=== PATIENT | female | born 1930 | race Caucasian/White ===

== ENCOUNTER 2016-10-26 13:51 | Inpatient (IN) ==
[2016-10-26 15:29] LABS: ALLEN TEST YES; BE 4.1 mmoll (-3.0-3.0); BLOOD TYPE ARTERIAL; DRAW SITE R RADIAL; METHB 0.9 % (0.0-1.5); MODALITY ROOM AIR; O2(CT) 19.1 mL/dL (15.0-23.0); PCO2(98.6) 41 mmHg (35-45); PO2(98.6) 70 mmHg (60-100); SAMPLE BLOOD; SAO2 96.3 % (95.0-100.0); THB 14.5 g/dL (11.5-17.4); pH(98.6) 7.45 (7.35-7.45)
--- NOTE | 2016-10-26 15:33 | Diag Imaging Result Doc PS360 ---
EXAM: CHEST-PORTABLE HISTORY: AMS TECHNIQUE: AP portable at 1526 COMMENT: The inspiration is suboptimal. The opacities which were previously demonstrated in the right lower lobe on 02/24/2013 are no longer present. There is a pacemaker on the left. IMPRESSION: No evidence of acute disease. Electronically signed by Marty Marlow 10/26/2016 3:31 PM
[2016-10-26 15:55] LABS: MANUAL DIFF NEEDED? NO
[2016-10-26 16:00] LABS: BASO% 0.2 % (0.0-0.8); EOS# 0.05 X1000 (0.0-0.7); EOS% 0.5 % (0.0-10.0); HEMATOCRIT 42.7 % (37.0-47.0); IMM GRAN# 0.02 X1000 (0.0-0.04); IMM GRAN% 0.2 % (0.0-0.5); LYMPH# 1.16 X1000 (1.2-3.4); LYMPH% 12.5 % (20.5-51.1); MCH 31.1 PG (27-31); MCHC 32.8 g/dL (33-37); MCV 94.9 FL (81-99); MONO% 7.6 % (1.7-9.3); MPV 11.3 FL (7.4-10.4); PLT 227 X1000 (130-400)
--- NOTE | 2016-10-26 16:03 | Diag Imaging Result Doc PS360 ---
EXAM: CT HEAD W/O CONTRAST HISTORY: AMS TECHNIQUE: CT of the head without contrast COMMENT: There are calcifications in the left vertebral artery. There are calcifications in both internal carotid arteries. There is generalized cerebral atrophy. There are periventricular white matter lucencies bilaterally and small lacunae in the basal ganglia regions are present. No evidence of acute bony disease is present in the visualized paranasal sinuses are clear. There are no previous studies. IMPRESSION: Atrophy and chronic microvascular changes. No evidence of acute intracranial disease. Electronically signed by Marty Marlow 10/26/2016 4:00 PM
[2016-10-26 16:09] LABS: INR 1.02; PROTIME 10.7 Seconds (9.2-11.7); PTT 26.5 Seconds (22.0-36.0)
[2016-10-26 16:21] LABS: AGAP 12; ALBUMIN 3.8 g/dL (3.5-5.0); ALKALINE PHOSPHATASE 102 U/L (32-104); BUN 15 mg/dL (8-22); CALCIUM 9.3 mg/dL (8.8-10.2); CHLORIDE 99 mmol/L (98-107); CK PROFILE 147 U/L (24-173); COSMO 278; GOT 27 U/L (10-30); GPT 21 U/L (10-36); POTASSIUM 3.7 mmol/L (3.5-5.1); SODIUM 139 mmol/L (136-145); TCO2 28 mmol/L (25-35); TOTAL BILIRUBIN 0.62 mg/dL (0.20-1.00); TOTAL PROTEIN 7.4 g/dL (6.3-8.3)
[2016-10-26 16:33] LABS: URINE SOURCE CATH
[2016-10-26 16:36] LABS: BILIRUBIN URINE NEGATIVE (NEGATIVE); BLOOD URINE NEGATIVE (NEGATIVE); COLOR YELLOW; GLUCOSE URINE NEGATIVE (NEGATIVE); LEUKOCYTES URINE NEGATIVE (NEGATIVE); NITRITE URINE NEGATIVE (NEGATIVE); PH URINE 6.5; PROTEIN URINE TRACE mg/dL (NEGATIVE); TURBIDITY URINE CLEAR (CLEAR); UROBILINOGEN URINE NORMAL (NORMAL)
[2016-10-26 16:38] LABS: URINE MICRO REVIEW NEEDED? YES
[2016-10-26 16:44] LABS: UR EPITHELIAL CELLS <10 /HPF (<10); URINE BACTERIA NEGATIVE /HPF; URINE CULTURE NEEDED? YES; URINE RBC <10 /HPF (<10)
[2016-10-26 17:08] LABS: UR AMPHETAMINES QUAL NONE DETECTED (NONE DETECT); UR BARBITUATES QUAL NONE DETECTED (NONE DETECT); UR BENZODIAZEPIN QUAL NONE DETECTED (NONE DETECT); UR CANNABINOIDS QUAL NONE DETECTED (NONE DETECT); UR COCAINE QUAL NONE DETECTED (NONE DETECT); UR METHADONE QUAL NONE DETECTED (NONE DETECT); UR OPIATES QUAL NONE DETECTED (NONE DETECT); UR OXYCODONE QUAL NONE DETECTED (NONE DETECT); UR PCP QUAL NONE DETECTED (NONE DETECT)
--- NOTE | 2016-10-26 17:50 | PROVIDER DOCUMENTATION ---
HPI-General Adult - General Chief Complaint: Altered Mental Status Stated Complaint: ams Time Seen by Provider: 10/26/16 14:47 Source: family Allergies/Adverse Reactions: Patient Allergies Allergy/AdvReac Type Severity Reaction Status Date / Time carisoprodol [From Soma] Allergy Severe Unknown Verified 10/26/16 14:44 hydromorphone HCl * Allergy Severe VOMITING Verified 10/26/16 14:44 [From Dilaudid] ofloxacin [From Floxin] Allergy Severe HEADACHE Verified 10/26/16 14:44 piperacillin sodium * Allergy Intermediate ITCHING Verified 10/26/16 14:44 [From Zosyn] tazobactam sodium * Allergy Intermediate ITCHING Verified 10/26/16 14:44 [From Zosyn] Home Medications: Home Medication List Medication Instructions Recorded Confirmed Last Taken Type Clopidogrel [Plavix] 75 mg PO QHS 02/22/13 10/26/16 10/25/16 History 75 mg Pantoprazole Sodium [Protonix] 40 mg PO QHS 02/22/13 10/26/16 10/18/16 History 40 MG Aspirin [Nilson Chewable Aspirin] 81 mg PO QAM 10/26/16 10/26/16 10/18/16 History 81 MG Citalopram Hydrobromide 10 mg PO QAM 10/26/16 10/26/16 10/24/16 History [Citalopram HBr] 10 MG Isosorbide Mononitrate E.r. [Imdur] 60 mg PO TID 10/26/16 10/26/16 10/24/16 History 60 MG Memantine HCl [Namenda] 10 mg PO BID 10/26/16 10/26/16 10/24/16 History 10 MG Metoprolol Succinate E.r. [Toprol 100 mg PO DAILY #30 tablet 11/01/16 Unknown Rx Xl] - History of Present Illness -Gen Adult Nature of Presenting Problems: Pt is 86 y/o F brought to the ER by EMS by request of her children who state she has had a decline in her baseline mental status. Pt has a h/o dementia but family states she is able to live with moderate assistance from them. In the past 1-2 days she has had decreased ability to communicate and ambulate. She has not taken her daily medications x 2 days. On arrival, pt is pleasantly confused and in no distress. Review of Systems - Adult - REVIEW OF SYSTEMS - ADULT ROS:: ROS per family Constitutional: reports: no symptoms reported. denies: chills, fatique Eyes: reports: no symptoms reported. denies: blurred vision, double vision Ears, Nose, Mouth & Throat: reports: no symptoms reported. denies: ear pain, nose pain Cardiovascular: reports: no symptoms reported. denies: chest pain, orthopnea Respiratory: reports: no symptoms reported. denies: cough, shortness of breath Gastrointestinal: reports: no symptoms reported. denies: abdominal pain, nausea Genitourinary: reports: no symptoms reported. denies: dysuria, hematuria Musculoskeletal: reports: no symptoms reported. denies: joint pain, joint swelling Integumentary: reports: no symptoms reported. denies: itching, rash Neurological: reports: ataxia, other (decreased speech). denies: numbness, paresthesia Psychiatric: reports: no symptoms reported Endocrine: reports: no symptoms reported Hematologic/Lymphatic: reports: no symptoms reported Allergic/Immunologic: reports: no symptoms reported All Other Systems: Reviewed and Negative Past History - Adult - PAST MEDICAL HISTORY-ADULT Review of Records: reports: Old Records Reviewed, Nursing Assessment Review, Medications Reviewed, Social history reviewed & non-contributory. Major Childhood Illnesses: reports: denies history Cardiovascular: reports: CAD, CHF, HTN Respiratory: reports: denies history Gastrointestinal: reports: denies history Obstetrical/Gynecological: reports: denies history Genitourinary: reports: denies history Musculoskeletal: reports: denies history Neurological: reports: dementia Endocrine/Immune: reports: denies history Other Conditions: reports: denies history - IMMUNIZATION STATUS Childhood Immunizations: See Nurse Assessment Flu Vaccine: See Nurse Assessment - FAMILY HISTORY Family History: reviewed, not pertinent Physical Exam-General - PHYSICAL EXAM-ADULT Initial Vital Signs Reviewed: Yes - CONSTITUTIONAL General Appearance: no apparent distress, other (pleasantly confused) - EYES Eyes: PERRL/EOMI, pink conjunctivae - HEAD, EARS, NOSE, MOUTH & THROAT HENMT: normocephalic/atraumatic, moist mucous membranes, normal ENT inspection - NECK Neck: normal inspection - RESPIRATORY Respiratory: chest non-tender, lungs clear, normal breath sounds - CARDIOVASCULAR Cardiovascular: normal peripheral pulses, regular rate, rhythm - GASTROINTESTINAL (ABDOMEN) Abdominal Exam: normal bowel sounds, non tender, soft - LYMPHATIC Lymphatic: no adenopathy - MUSCULOSKELETAL Back Exam: normal inspection, no CVA tenderness, no vertebral tenderness Extremity: normal range of motion, normal inspection - SKIN Integumentary: normal color, normal turgor, warm/dry - NEUROLOGIC Neurologic: other (confused speech). negative: facial droop - PSYCHIATRIC Psych/Mental Status: disoriented x 3 Progress - PLAN OF CARE/RESULTS Progress/Plan/Lab Results: Vital Signs - 8 hr 10/26/16 14:00 Temperature 98 F Pulse Rate 68 Respiratory Rate 20 Blood Pressure 180/94 O2 Sat by Pulse Oximetry 95 Laboratory Results - last 24 hr 10/26/16 10/26/16 10/26/16 15:19 15:36 15:36 WBC 9.26 RBC 4.50 Hgb 14.0 Hct 42.7 MCV 94.9 MCH 31.1 H MCHC 32.8 L RDW Std Deviation 13.8 Plt Count 227 MPV 11.3 H Immature Gran % (Auto) 0.2 Neut % (Auto) 79.0 H Lymph % (Auto) 12.5 L Early % (Auto) 7.6 Eos % (Auto) 0.5 Baso % (Auto) 0.2 Immature Gran # (Auto) 0.02 Neut # (Auto) 7.31 H Lymph # (Auto) 1.16 L Early # (Auto) 0.70 H Eos # (Auto) 0.05 Baso # (Auto) 0.02 PT INR PTT (Actin FS) Specimen Type ARTERIAL Sample Site R RADIAL pH 7.45 pCO2 41 pO2 70 HCO3 28.0 H Base Excess 4.1 H Oxyhemoglobin 93.7 L ABG O2 Sat (Calculated) 19.1 ABG O2 Saturation 96.3 ABG Carboxyhemoglobin 1.80 ABG Methemoglobin 0.9 Wolf Test YES A-a O2 Difference 28.0 Total Hemoglobin 14.5 Lactate 0.90 Blood Gas Modality ROOM AIR FiO2 % 21.0 Sodium Potassium Chloride Carbon Dioxide Anion Gap BUN Creatinine Estimated GFR/1.73 m2 BUN/Creatinine Ratio Glucose Calculated Osmolality Calcium Total Bilirubin AST ALT Alkaline Phosphatase Creatine Kinase Troponin T Total Protein Albumin Globulin Albumin/Globulin Ratio Plasma Lactate Urine Source Urine Color Urine Turbidity Urine pH Ur Specific Dilley Urine Protein Ur Glucose (Stick) Ur Ketones (Stick) Urine Blood Urine Nitrite Urine Bilirubin Urobilinogen Dipstick Urine Leukocytes Urine WBC (Auto) Urine RBC (Auto) U Epithel Cells (Auto) Urine Bacteria (Auto) Urine Crystals Small Round Cells Urine Casts Urine Yeast-like Cells Urine Opiates Screen Ur Oxycodone Screen Ur Methadone, Qual Ur Barbiturates Screen Ur Phencyclidine Scrn Ur Amphetamines Screen U Benzodiazepines Scrn Urine Cocaine Screen U Cannabinoids Screen Plasma/Serum Ethyl Alc 10/26/16 10/26/16 10/26/16 15:36 15:36 15:36 WBC RBC Hgb Hct MCV MCH MCHC RDW Std Deviation Plt Count MPV Immature Gran % (Auto) Neut % (Auto) Lymph % (Auto) Early % (Auto) Eos % (Auto) Baso % (Auto) Immature Gran # (Auto) Neut # (Auto) Lymph # (Auto) Early # (Auto) Eos # (Auto) Baso # (Auto) PT 10.7 INR 1.02 PTT (Actin FS) 26.5 Specimen Type Sample Site pH pCO2 pO2 HCO3 Base Excess Oxyhemoglobin ABG O2 Sat (Calculated) ABG O2 Saturation ABG Carboxyhemoglobin ABG Methemoglobin Wolf Test A-a O2 Difference Total Hemoglobin Lactate Blood Gas Modality FiO2 % Sodium 139 Potassium 3.7 Chloride 99 Carbon Dioxide 28 Anion Gap 12 BUN 15 Creatinine 0.8 Estimated GFR/1.73 m2 > 60 BUN/Creatinine Ratio 19 Glucose 94 Calculated Osmolality 278 Calcium 9.3 Total Bilirubin 0.62 AST 27 ALT 21 Alkaline Phosphatase 102 Creatine Kinase 147 Troponin T Total Protein 7.4 Albumin 3.8 Globulin 3.6 Albumin/Globulin Ratio 1.1 Plasma Lactate 1.1 Urine Source Urine Color Urine Turbidity Urine pH Ur Specific Dilley Urine Protein Ur Glucose (Stick) Ur Ketones (Stick) Urine Blood Urine Nitrite Urine Bilirubin Urobilinogen Dipstick Urine Leukocytes Urine WBC (Auto) Urine RBC (Auto) U Epithel Cells (Auto) Urine Bacteria (Auto) Urine Crystals Small Round Cells Urine Casts Urine Yeast-like Cells Urine Opiates Screen Ur Oxycodone Screen Ur Methadone, Qual Ur Barbiturates Screen Ur Phencyclidine Scrn Ur Amphetamines Screen U Benzodiazepines Scrn Urine Cocaine Screen U Cannabinoids Screen Plasma/Serum Ethyl Alc 10/26/16 10/26/16 10/26/16 15:36 16:32 16:32 WBC RBC Hgb Hct MCV MCH MCHC RDW Std Deviation Plt Count MPV Immature Gran % (Auto) Neut % (Auto) Lymph % (Auto) Early % (Auto) Eos % (Auto) Baso % (Auto) Immature Gran # (Auto) Neut # (Auto) Lymph # (Auto) Early # (Auto) Eos # (Auto) Baso # (Auto) PT INR PTT (Actin FS) Specimen Type Sample Site pH pCO2 pO2 HCO3 Base Excess Oxyhemoglobin ABG O2 Sat (Calculated) ABG O2 Saturation ABG Carboxyhemoglobin ABG Methemoglobin Wolf Test A-a O2 Difference Total Hemoglobin Lactate Blood Gas Modality FiO2 % Sodium Potassium Chloride Carbon Dioxide Anion Gap BUN Creatinine Estimated GFR/1.73 m2 BUN/Creatinine Ratio Glucose Calculated Osmolality Calcium Total Bilirubin AST ALT Alkaline Phosphatase Creatine Kinase Troponin T < 0.010 Total Protein Albumin Globulin Albumin/Globulin Ratio Plasma Lactate Urine Source CATH Urine Color YELLOW Urine Turbidity CLEAR Urine pH 6.5 Ur Specific Dilley 1.020 Urine Protein TRACE A Ur Glucose (Stick) NEGATIVE Ur Ketones (Stick) TRACE A Urine Blood NEGATIVE Urine Nitrite NEGATIVE Urine Bilirubin NEGATIVE Urobilinogen Dipstick NORMAL Urine Leukocytes NEGATIVE Urine WBC (Auto) 10-20 A Urine RBC (Auto) <10 U Epithel Cells (Auto) <10 Urine Bacteria (Auto) NEGATIVE Urine Crystals Not Reportable Small Round Cells Not Reportable Urine Casts Not Reportable Urine Yeast-like Cells PRESENT Urine Opiates Screen NONE DETECTED Ur Oxycodone Screen NONE DETECTED Ur Methadone, Qual NONE DETECTED Ur Barbiturates Screen NONE DETECTED Ur Phencyclidine Scrn NONE DETECTED Ur Amphetamines Screen NONE DETECTED U Benzodiazepines Scrn NONE DETECTED Urine Cocaine Screen NONE DETECTED U Cannabinoids Screen NONE DETECTED Plasma/Serum Ethyl Alc Orders Category Date Time Status Cardiac Monitoring DIRECTED Care 10/26/16 15:09 Active Finger Stick Blood Sugar (ED) DIRECTED Care 10/26/16 15:09 Active Quintero Cath Insertion ORDERED Care 10/26/16 16:00 Active Oxygen Therapy- ED Nursing DIRECTED Care 10/26/16 15:09 Active Saline Loc NOW Care 10/26/16 15:09 Active CHEST-PORTABLE [RAD] Stat Exams 10/26/16 15:[address] HEAD W/O CONTRAST [CT] Stat Exams 10/26/16 15:10 Completed ABG [RESP] Routine Lab 10/26/16 15:19 Completed ALCOHOL BLOOD Stat Lab 10/26/16 15:36 Completed CBC WITH ELECTRONIC DIFF [HEME] Stat Lab 10/26/16 15:36 Completed CK PROFILE [SP CHEM] Stat Lab 10/26/16 15:36 Completed COMPREHENSIVE METABOLIC PANEL [CHEM] Stat Lab 10/26/16 15:36 Completed LACTATE, PLASMA [CHEM] Stat Lab 10/26/16 15:36 Completed PROTIME WITH INR [COAG] Stat Lab 10/26/16 15:36 Completed PTT [COAG] Stat Lab 10/26/16 15:36 Completed TROPONIN T Stat Lab 10/26/16 15:36 Completed URINALYSIS W/POSS RFLX CULT-1 [URINALYSIS] Stat Lab 10/26/16 16:32 Completed URINE CULTURE [RM] Routine Lab 10/26/16 17:08 Received URINE DRUG SCREEN Stat Lab 10/26/16 16:32 Completed URINE MANUAL MICROSCOPIC [URINALYSIS] Stat Lab 10/26/16 16:32 Completed Pulse Oximetry Stat Oth 10/26/16 15:09 Active EKG [EKG] Stat Ther 10/26/16 15:09 Ordered Result Diagrams: 10/29/16 09:07 10/29/16 09:07 - CONSULTS/PCP/HOSPITALIST Notification #1 *Consult/PCP/Hospitalist*: Dr. Velázquez (PCP) Time Discussed: 17:48 Reason/Comments: Will see pt in the ER and admit her to his service. Departure - Departure Date of Disposition Decision: 10/26/16 Time of Disposition Decision: 17:48 DIAGNOSIS: Altered mental status Qualifiers: Altered mental status type: unspecified Qualified Code(s): R41.82 - Altered mental status, unspecified Disposition: ADMITTED INPATIENT 09 Certified Medical Emergency: Emergent Condition: Stable - Critical Care Note This patient required my direct & personal management of CC.: No Attestation - Physician/ KEEGAN Attestation Patient care was provided by Advanced Practice Provider:: Yes Advanced Practice Provider:: Toni Jerry Advanced Practice Provider documentation review:: The Mid-level provider documentation, treatment plan and medical decision making was reviewed by the physician who agrees with all treatment and medical decision making by the [facility]. The physician spent face to face time with patient:: No Advanced Practice Provider documentation review:: Supervising physician onsite and consulted in the evaluation and care of this patient. The physician did not have a face to face encounter with the patient.
[2016-10-26] MEDS ORDERED: NS 1,000 ML IV ONE (17:51)
[2016-10-26] MEDS ORDERED: DOXYCYCLINE 100 MG in NS 250 ML IV ONE (19:30)
--- NOTE | 2016-10-26 19:41 | HISTORY AND PHYSICAL ---
CHIEF COMPLAINT: Acute mental status, decline and loss of functional performance. HISTORY OF PRESENT ILLNESS: This 86-year-old, white female has a known history of dementia but lives with the assistance of her children even though she is disoriented quite a bit. They report that on Saturday, she began to have an acute decline in her overall mental status and performance. Her words made no sense and she seemed completely disoriented. She was not able to take her medications. She could barely walk even with 2 people assisting her. The daughter states that her steps became shorten and shuffling and that over the next 48-72 hour period, she went from walking with minimal assistance without a walker to requiring 2 people to help her and a walker just to shuffle across the floor. They do not report any fever or chills. The patient was not able to make any complaints to them. They called the office this morning but then opted to take an ambulance to [facility] which arrived several hours after their phone call. She had a workup in the emergency room which showed a urinary tract infection but no evidence of acute sepsis. She was also hypertensive and was having runs of tachycardia. The patient's daughter noted that she has not taken any of her medicines in several days. The patient also had a negative CT scan of the brain and cardiac enzymes were negative. ABG was unremarkable. She is admitted for acute mental status change. ALLERGIES: She allergic to Soma, ofloxacin, penicillin and sulfa drugs. She does not do well with Dilaudid. FAMILY HISTORY: Significant for heart disease. SOCIAL HISTORY: The patient is a nonsmoker and lives in a nonsmoking household. She basically lives with her daughter. PAST MEDICAL/SURGICAL HISTORY: 1. Status post cervical fusion. 2. Lumbar laminectomy. 3. Tubal ligation. 4. Bilateral cataracts. 5. Left total knee. 6. Hysterectomy. 7. Right shoulder arthroplasty. 8. History of ischemic heart disease. 9. Hypertension. 10. Remote history of congestive heart failure. 11. Chronic anemia. 12. Chronic lower extremity edema. REVIEW OF SYSTEMS: The patient was unable to give a review of systems. Please see History of Present Illness for the family's commentary. They do not note that she has had an abnormal smell to her urine. She appears to have a normal urine concentration that she usually does. They state that if she sits up all day, her legs swell,. At time my examination in the recumbent position, they were not swollen. There has been no coughing, wheezing or shortness of breath. The patient did not complain of chest pain during her stay in the emergency room, but the daughter states she has complained of chest pain over the last several weeks. The patient's daughter is adamant that she was doing well up until Saturday and she first noted a decline when she gave her some Zyprexa for "anxiety." I do not have on my record that she was on any type of medication such as this on a regular basis. She may have been given that once or twice in the past for acute problems. PHYSICAL EXAMINATION: GENERAL: She is a well-developed, overweight white female, in no acute distress. She is a little bit restless and agitated. She is confused and not oriented, but that is not far from her baseline. She is unable to form complete sentences or even phrases that make any sense. She talks rather continuously and objects to being manipulated to measure blood pressure and such. She was difficult to examine. HEENT: Sclerae are anicteric. Slightly pale. Overall, her skin tone is pale. LUNGS: Clear to auscultation. CARDIOVASCULAR: At the time of my examination, showed a heart rate of 80 with no significant murmur or gallop. ABDOMEN: Benign although protuberant. EXTREMITIES: Show fine wrinkling in the pretibial flesh indicative of recent volume contraction which was also visible in the feet. She had good capillary refill in the upper and lower extremities. NEUROLOGIC: As stated before, the patient was alert but not oriented. Not conversive, not appropriate and really did not make any sense the entire time I was talking with her. She was unable to be tested for neurologic specificities. LABORATORY: White cell count is 9.2, hematocrit 42.7. ABG 7.45, 41, 708. Serum electrolytes were normal. Troponin T and CK were within the normal range. Urinalysis showed 10-20 white cells per high-power field. Her urine drug screen was negative. ASSESSMENT/PLAN: 1. The patient will be admitted for acute mental status change. I discussed with the family the fact that the patient's quality of life at 86 has sharply declined over the last few months anyway. I proposed that we treat her for the urinary tract infection, gently hydrate as necessary and administer as many of her medications through an IV route as possible and see if her mental status turns around. If it does not do so over the weekend, we will then and obtain MRI Saturday and consult Dr. Lanie Lema for his opinion on her mental status. 2. Do not resuscitate level 1. cc: Jean Velázquez MD MTDD
[2016-10-26] MEDS: NAMENDA PO SCH (21:00)
[2016-10-26] MEDS: PLAVIX PO SCH (22:20)
[2016-10-27] MEDS ORDERED: STERILE WATER INJ. INJ PRN (00:01)
[2016-10-27] MEDS ORDERED: LOPRESSOR IV SCH (00:01)
[2016-10-27] MEDS ORDERED: GEODON IM PRN (00:01)
[2016-10-27] MEDS: NITROGLYCERIN TOP SCH ×3 (01:10→15:58)
[2016-10-27] MEDS: PEPCID IV SCH ×2 (01:11→14:17)
[2016-10-27] MEDS: PROTONIX IV SCH (05:25)
[2016-10-27] MEDS: SODIUM CHLORIDE 0.9% INJ SCH (05:25)
[2016-10-27] MEDS: DOXYCYCLINE 100 MG in NS 250 ML IV SCH ×2 (08:00→21:37)
[2016-10-27] MEDS ORDERED: CARDIZEM IV ONE (08:18)
[2016-10-27] MEDS ORDERED: LANOXIN IV ONE (09:55)
[2016-10-27] MEDS: NAMENDA PO SCH ×2 (10:01→21:37)
[2016-10-27] MEDS: ASPIRIN PO SCH (10:01)
[2016-10-27] MEDS: TOPROL XL PO SCH (10:01)
[2016-10-27] MEDS: LANOXIN IV SCH ×4 (14:18→21:37)
--- NOTE | 2016-10-27 17:45 | CONSULTATION ---
DATE OF CONSULTATION: 10/27/2016 INDICATION: Altered mental status. Atrial arrhythmias. Possible chest pain. HISTORY OF PRESENT ILLNESS: Ms. Abdullahi is a pleasant 86-year-old female with a significant level of dementia who is taken care of by her children at home. Apparently, she has been on some antibiotics for a urinary tract infection and has not been maintaining oral intake and as such had been somewhat difficult to get her to take her antibiotics. Family reports she has been somewhat weaker lately. Thus, they brought her into the ER for further evaluations. Apparently, over the course of the hospitalization, she has had some complaints of chest pain although the patient is a very poor historian and is not able to provide much of this. Apparently, she has been administered some doses of nitroglycerin. In addition, there has been report of some atrial arrhythmias occurring; however, I have no documentation of that in the chart presently. I have contacted telemetry to get those sent down. PAST MEDICAL HISTORY: 1. Via chart review is significant for coronary disease. Previously taken care by Dr. Parada, most recently by Dr. Bettencourt. She had a cardiac cath in 2001 with an occluded PDA, noted to have collaterals and a patent LAD stent. She had a previous stent to the PDA in 1998, LAD stent in 1999. Most recent cath with 2013, left main, LAD and circumflex were patent. Right coronary was occluded after high-grade proximal lesion with good collateralization to the distal right. EF was around 45% on that study. 2. 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 3. Hypertension. 4. Hyperlipidemia, with intolerance to statins. 5. Bilateral carotid artery disease. 6. History of TIA. 7. Mild COPD. 8. Peptic ulcer disease. 9. Significant dementia. SOCIAL HISTORY: Nonsmoker. She lives with her daughter. FAMILY HISTORY: Significant for heart disease. REVIEW OF SYSTEMS: A 10 system review of systems is unable to be obtained secondary to the patient's significant level of dementia. PHYSICAL EXAMINATION: Vital signs: Afebrile. Heart rates are widely variable. She has got documentations anywhere from the 60s to the 90s along with 2 recordings of 168 and 170. I am still pending on that telemetry. Blood pressure is 153/87. General: She is in no acute distress. HEENT: Oropharynx is moist. Poor dentition. Eye examination shows pink conjunctivae. White sclerae. Neck: Examination shows no obvious thyromegaly or thyroid tenderness. Cardiovascular: She is in a regular rate and rhythm. She has no murmurs. She has no S3. She has no lower extremity edema. Chest: Clear bilaterally. She has no increased work of breathing. Abdomen: Soft, nontender, nondistended. She has no obvious organomegaly. Skin: Warm and dry throughout without any rashes. Neurological/psychiatrically: She is unable to cooperate with the examination. She is pleasantly confused. She is quite fidgety with her hands as well as continuously mumbling during much of the exam. PERTINENT DATA: Her EKG shows sinus rhythm at 69 beats per minute. No signs of significant arrhythmias. No signs of ischemic changes or evidence for old infarct. Chest x-ray shows no evidence of any acute disease. CT the head shows atrophy and chronic microvascular changes, but nothing appears to be acutely abnormal. White count is 9.2, hematocrit 42.7, platelet count 227,000, INR 1, sodium 139, potassium 3.7, BUN 15, creatinine 0.8. Cardiac enzymes are normal. Albumin is 3.8. Urinalysis was reviewed and had 10-20 white blood cells. ASSESSMENT: 1. Chest pain. 2. Dementia with apparent worsening weakness. 3. Possible atrial arrhythmias. PLAN: We are pending her telemetry to review these episodes. Presently, I would consider potentially adding in a calcium channel milly in the form of diltiazem long-acting if she does indeed have some atrial arrhythmias and this could possibly also add in somewhat of an antianginal benefit. In addition, we could also titrate up her metoprolol as another alternative as well. We will wait review of these arrhythmias prior to proceeding. cc: MD Jean Ventura MD
--- NOTE | 2016-10-27 19:17 | ECHO REPORT ---
ORDER DATE: 10/27/2016 INDICATION: Atrial arrhythmias. FINDINGS: 1. Right atrium is normal in size. There is linear artifact consistent with device leads noted in the right heart chambers. 2. Mild tricuspid regurgitation. RV systolic pressure of 43. 3. Normal RV size and systolic function. 4. Trace pulmonic insufficiency. 5. Normal left atrial size at 3.2 cm. 6. No mitral valve prolapse. Trace mitral regurgitation. 7. Normal LV size, end-diastolic dimension of 4.6. Normal wall thicknesses with a posterior and interventricular septal wall thickness of 0.9 cm each. Normal LV systolic function. Calculated EF of 64% with normal wall motion. 8. Aortic valve opens well. There is mild aortic insufficiency. No evidence of stenosis. 9. Aorta appears normal in visualized segments. 10. No pericardial effusion seen. cc: MD Yosvany Ventura MD Timothy P. Weirich, MD
[2016-10-27] MEDS: PLAVIX PO SCH (21:37)
[2016-10-28] MEDS: NITROGLYCERIN TOP SCH (00:58)
[2016-10-28] MEDS: PEPCID IV SCH ×3 (00:58→23:43)
[2016-10-28] MEDS: LANOXIN IV SCH (00:59)
[2016-10-28] MEDS: PROTONIX IV SCH (05:14)
[2016-10-28] MEDS: NAMENDA PO SCH ×2 (09:01→21:55)
[2016-10-28] MEDS: DOXYCYCLINE 100 MG in NS 250 ML IV SCH ×2 (09:01→21:55)
[2016-10-28] MEDS: ASPIRIN PO SCH (09:01)
[2016-10-28] MEDS: TOPROL XL PO SCH (09:02)
[2016-10-28] MEDS: CELEXA PO SCH (11:02)
[2016-10-28] MEDS: IMDUR PO SCH ×3 (11:02→17:54)
[2016-10-28] MEDS: SODIUM CHLORIDE 0.9% INJ SCH (13:06)
--- NOTE | 2016-10-28 14:07 | PROGRESS NOTE ---
DATE: 10/28/2016 SUBJECTIVE: Ms. Abdullahi continues to be quite confused. She is sleeping pleasantly on presentation, and with light physical stimuli she awakes, and has essentially unintelligible speech. PHYSICAL EXAMINATION: Vital Signs: She is afebrile. Heart rate is in the 70s to 90s. Blood pressure 147/69. General: She is in no acute distress. Cardiovascular: She sounds to be in a regular rate and rhythm. She has no murmurs. She has no S3. No lower extremity edema. Chest: Clear bilaterally. No increased work of breathing. Abdomen: Soft, nontender. PERTINENT DATA: Her echocardiogram yesterday showed a normal ejection fraction, with no significant valvular abnormalities. Her laboratory data was from the , with nothing new since. ASSESSMENT: Atrial arrhythmias, probable supraventricular tachycardia in nature. PLAN: She already had a dose escalation by Dr. Gleason. She was on Toprol 25 mg at bedtime, and this has been escalated up to 100 mg. I do not see any reoccurrence of these arrhythmias since. For now, I would continue on this dose of medication. I have no further recommendations at this point. Please contact us if we can be of further assistance. cc: MD Jean Ventura MD
[2016-10-28] MEDS: TYLENOL PO PRN (21:55)
[2016-10-28] MEDS: PLAVIX PO SCH (21:55)
[2016-10-29] MEDS: PROTONIX IV SCH (05:11)
--- NOTE | 2016-10-29 05:50 | EKG Report ---
Test Performed on : 10/28/2016 05:43:02 AM Test Reason : tachycardia Blood Pressure : / mmHG Vent. Rate : 085 BPM Atrial Rate : 085 BPM P-R Int : 150 ms QRS Dur : 084 ms QT Int : 350 ms P-R-T Axes : 068 -17 060 degrees QTc Int : 416 ms Normal sinus rhythm. Cannot rule out Inferior infarct , age undetermined Abnormal ECG When compared with ECG of 26-OCT-2016 18:00, (Unconfirmed) ST no longer depressed in Anterior leads Confirmed by Cruzito Camara MD ([id number]) on 10/31/2016 5:58:35 PM
--- NOTE | 2016-10-29 06:43 | EKG Report ---
Test Performed on : 10/26/2016 3:08:25 PM Test Reason : AMS Blood Pressure : / mmHG Vent. Rate : 069 BPM Atrial Rate : 069 BPM P-R Int : 114 ms QRS Dur : 094 ms QT Int : 368 ms P-R-T Axes : 000 -23 008 degrees QTc Int : 394 ms Normal sinus rhythm. Low voltage QRS Inferior infarct , age undetermined Abnormal ECG When compared with ECG of 23-FEB-2013 06:47, Nonspecific T wave abnormality now evident in Anterolateral leads Unconfirmed Result
--- NOTE | 2016-10-29 06:49 | EKG Report ---
Test Performed on : 10/26/2016 6:00:55 PM Test Reason : tachy Blood Pressure : / mmHG Vent. Rate : 078 BPM Atrial Rate : 078 BPM P-R Int : 170 ms QRS Dur : 066 ms QT Int : 338 ms P-R-T Axes : 100 -12 044 degrees QTc Int : 385 ms Normal sinus rhythm. Nonspecific ST and T wave abnormality Abnormal ECG When compared with ECG of 26-OCT-2016 15:08, (Unconfirmed) QRS duration has decreased Criteria for Inferior infarct are no longer present ST more depressed in Anterior leads Nonspecific T wave abnormality no longer evident in Lateral leads Unconfirmed Result
[2016-10-29] MEDS: DOXYCYCLINE 100 MG in NS 250 ML IV SCH ×2 (09:24→20:14)
[2016-10-29] MEDS: CELEXA PO SCH (09:25)
[2016-10-29] MEDS: ASPIRIN PO SCH (09:26)
[2016-10-29] MEDS: IMDUR PO SCH ×3 (09:27→18:48)
[2016-10-29 09:28] LABS: MANUAL DIFF NEEDED? NO
[2016-10-29] MEDS: TOPROL XL PO SCH (09:28)
[2016-10-29] MEDS: NAMENDA PO SCH ×2 (09:28→20:14)
[2016-10-29 09:29] LABS: BASO% 0.2 % (0.0-0.8); EOS# 0.11 X1000 (0.0-0.7); HEMATOCRIT 39.4 % (37.0-47.0); HEMOGLOBIN 12.9 g/dL (12.0-16.0); IMM GRAN# 0.02 X1000 (0.0-0.04); IMM GRAN% 0.2 % (0.0-0.5); LYMPH# 1.19 X1000 (1.2-3.4); LYMPH% 11.3 % (20.5-51.1); MCH 31.3 PG (27-31); MCHC 32.7 g/dL (33-37); MCV 95.6 FL (81-99); MONO# 1.14 X1000 (0.11-0.59); MONO% 10.8 % (1.7-9.3); MPV 11.1 FL (7.4-10.4); NEUT% 76.5 % (42.2-75.2); PLT 211 X1000 (130-400); RBC 4.12 XMIL (4.2-5.4)
[2016-10-29 10:07] LABS: ALBUMIN 3.1 g/dL (3.5-5.0); CALCIUM 9.6 mg/dL (8.8-10.2); POTASSIUM 3.9 mmol/L (3.5-5.1); TOTAL BILIRUBIN 0.73 mg/dL (0.20-1.00); TOTAL PROTEIN 5.9 g/dL (6.3-8.3)
[2016-10-29] MEDS: PEPCID IV SCH (11:45)
[2016-10-29] MEDS: SODIUM CHLORIDE 0.9% INJ SCH (11:45)
--- NOTE | 2016-10-29 12:49 | PROGRESS NOTE ---
DATE: 10/29/2016 SUBJECTIVE: The patient's daughter states that she has gotten worse over the weekend. Despite reasonable fluid management and changing of certain cardiovascular medications, she has continued to have a downhill course in her level of interaction. She is able to take her medications with pudding now but since having her Quintero catheter removed she has not urinated overnight. Bladder scan showed a volume of 118 mL. Food intake is marginal. She has been sleeping a lot. OBJECTIVE: Vital Signs: 97.7, 61, 18, 150/70, 99% saturated on room air. General: The patient is asleep but arouses and complains about being aroused, although her words are unintelligible. Lungs: Clear. Cardiovascular: Regular, bordering on bradycardic at the time of my examination. Extremities: Show no peripheral edema. The patient does not have any abdominal tenderness or pain as evidenced by the deep palpation. ASSESSMENT AND PLAN: 1. As per my initial H P, I was hoping that reasonable metabolic management would result in recovery from her acute decline of mental status. This is not been the case. I was going to order an MRI this morning but she has a pacemaker and they cannot do that particular procedure. I am going to consult Dr. Lema to get his input on her acute mental status and see if he thinks a repeat CT scan would be worth doing. 2. I plan to recheck all of the patient's labs and follow vital signs. She has not seemed to have had a recurrence of her tachycardia/atrial fibrillation since getting back on track with her oral medications. 3. I discussed with the patient's daughter the fact that this may just simply be an end of life issue and that we would not want to dig much deeper. She seemed to be in agreement with this. She stated the patient cannot go to a [facility] because "they will take everything from us." I therefore suggested that at discharge, assuming that we find nothing that we are able to fix, that we send her home with hospice care. She seemed to be in agreement. cc: Jean Velázquez MD
[2016-10-29] MEDS: PLAVIX PO SCH (20:14)
[2016-10-30] MEDS: PEPCID IV SCH ×2 (04:33→13:05)
[2016-10-30] MEDS: SODIUM CHLORIDE 0.9% INJ SCH (06:27)
[2016-10-30] MEDS: PROTONIX IV SCH (06:27)
--- NOTE | 2016-10-30 08:52 | CONSULTATION ---
DATE OF CONSULTATION: 10/29/2016 REASON FOR CONSULTATION: Dementia, mental status decline. HISTORY OF PRESENT ILLNESS: 86-year-old, female, with advanced dementia, who was admitted for decline over the latter part of last week. She was admitted on Saturday. Apparently, she is pretty confused at baseline, although she has had some worsening mental status decline since Saturday. She has been difficult to understand and completely disoriented. She has not been taking her medications at this time. Also, her mobility has declined as well. She could previously walk with some minimal assistance, but now gradually got to the point where she was pretty much unable to walk, even with 2-person assist and her walker. No fevers or chills. She was noted to have a urinary tract infection on admission, for which she is being treated. She has also been hypertensive with the runs of tachycardia, presumably while off of her medications. Head CT on admission was unremarkable for acute findings. She has a pacemaker so she cannot have MRI. PAST MEDICAL HISTORY: pacemaker, hypertension, coronary disease, remote history of CHF, chronic anemia, hysterectomy, cataracts, lumbar laminectomy, cervical fusion, tubal ligation, knee replacement on the left, right shoulder arthroplasty, hysterectomy, chronic lower extremity edema. SOCIAL HISTORY: She is a nonsmoker. She lives alone, but her daughter and son live in close proximity and assist her daily. FAMILY HISTORY: Positive for heart disease. ALLERGIES: Soma, ofloxacin, penicillin, sulfa. MEDICATIONS: Current, reviewed in the chart, include aspirin 81 mg, Celexa, Plavix 75 mg, Namenda 10 mg b.i.d., Imdur, Toprol-XL. REVIEW OF SYSTEMS: Unable to be assessed completely due to her dementia and altered mental status. Family mentioned she has had some pain when the nurse tried to move her the other day. She was also complaining possibly of some chest pain, which has been evaluated by Cardiology. PHYSICAL EXAMINATION: Vital Signs: Afebrile, blood pressure 148/72, pulse 61, respirations 18, 95% on room air. General: Elderly female, supine in bed, in no acute distress. Family at bedside. neck: Supple. She does complain of some pain with passive head turning and bending; however, she also complains of the same pain when touching either arm or either leg, or pretty much anywhere on her body. Trachea midline. HEENT: Normal Cardiovascular: No significant edema. Intact pulses. Regular rate and rhythm. Lungs: No increased work of breathing. Normal chest rise expansion. No audible wheezes. Abdomen: Soft, nondistended. There is some guarding and some wincing in pain, but, again, she has this wincing in pain throughout her body. Extremities: Warm, well-perfused. No significant edema. No clubbing or cyanosis. Skin: Warm, dry, and intact. No lesions. Neurologic: Mental status: She is awake and alert. Not oriented. Able to tell me her first name. Not able to identify her family members, only one of which she should be able to identify, her son. She is speaking tangentially. Cranial nerves: Pupils are equal, round, reactive to light. Conjugate gaze. Ocular movements full in the horizontal direction. Face symmetric with equal activation. Hearing grossly intact. Blinks to threat. Motor exam: She has some resistance to passive movement of all extremities. She has normal bulk. She is moving all extremities equally and, at least, against gravity. Sensory exam: Responds to minimal sensory stimulation in all extremities. Winces and moans in pain. Reflexes are symmetric, diminished throughout, 1+. Toes are with excessive withdrawal on testing. Gait was not tested. Coordination: No gross incoordination on exam. DIAGNOSTICS: Labs were reviewed in the chart. White count is normal. INR is 1. Sodium 142, potassium 3.9, BUN 23, creatinine 0.9, glucose 100, calcium 9.6, magnesium 2.2. LFTs are not elevated. B12 is 603. TSH 2.6. Urinalysis: Trace protein, trace ketones, 10 to 20 white blood cells. Culture positive for yeast. Toxicology negative. A noncontrasted head CT was personally reviewed. There are no acute findings. Generalized cerebral atrophy is noted. ASSESSMENT AND PLAN: An 86-year-old, female, with advanced dementia, admitted with about a 3-day decline over last week, actually in the setting of urinary tract infection. Head CT was unremarkable. She has a pacemaker and cannot have an MRI. Her examination is nonfocal, which is reassuring. I suspect this may be a decline in her level of functioning in a patient with advanced dementia and urinary tract infection. Agree with treating the urinary tract infection and gentle hydration as you are doing. I am not sure how much recovery to her prior baseline she will have. I did explain this to the family. If she does not continue to show some gradual improvement, we can consider other testing at that time, but I do not think repeat head CT is warranted immediately, based on her exam. The son indicated that they were leaning toward hospice therapy. Thank you for this consultation. cc: MD Jean Burt MD MTDD
[2016-10-30] MEDS: IMDUR PO SCH ×3 (09:02→18:00)
[2016-10-30] MEDS: NAMENDA PO SCH ×2 (09:02→21:03)
[2016-10-30] MEDS: TOPROL XL PO SCH (09:03)
[2016-10-30] MEDS: CELEXA PO SCH (09:03)
[2016-10-30] MEDS: ASPIRIN PO SCH (09:03)
[2016-10-30] MEDS ORDERED: DIFLUCAN PO ONE (11:32)
[2016-10-30] MEDS: PLAVIX PO SCH (21:03)
[2016-10-30] MEDS: TYLENOL PO PRN (21:12)
[2016-10-31] MEDS: PEPCID IV SCH (03:46)
[2016-10-31] MEDS: SODIUM CHLORIDE 0.9% INJ SCH (05:09)
[2016-10-31] MEDS: PROTONIX IV SCH (05:09)
[2016-10-31] MEDS ORDERED: DOXYCYCLINE PO SCH (09:00)
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
[2016-10-31] MEDS: NAMENDA PO SCH ×2 (10:55→21:18)
[2016-10-31] MEDS: ASPIRIN PO SCH (10:56)
[2016-10-31] MEDS: IMDUR PO SCH ×2 (10:56→17:47)
[2016-10-31] MEDS: TOPROL XL PO SCH (10:56)
[2016-10-31 11:44] LABS: URINE MICRO REVIEW NEEDED? NO; URINE SOURCE CATH
[2016-10-31 11:54] LABS: BILIRUBIN URINE NEGATIVE (NEGATIVE); BLOOD URINE NEGATIVE (NEGATIVE); COLOR YELLOW; GLUCOSE URINE NEGATIVE (NEGATIVE); LEUKOCYTES URINE TRACE (NEGATIVE); NITRITE URINE NEGATIVE (NEGATIVE); PROTEIN URINE TRACE mg/dL (NEGATIVE); SP GRAVITY URINE 1.021; TURBIDITY URINE CLEAR (CLEAR); UR EPITHELIAL CELLS <10 /HPF (<10); URINE BACTERIA NEGATIVE /HPF; URINE CULTURE NEEDED? YES; URINE RBC <10 /HPF (<10); URINE WBC <10 /HPF (<10); UROBILINOGEN URINE NORMAL (NORMAL)
[2016-10-31] MEDS: PLAVIX PO SCH (21:18)
[2016-11-01] MEDS: SODIUM CHLORIDE 0.9% INJ SCH (05:29)
[2016-11-01] MEDS: PROTONIX IV SCH (05:29)
[2016-11-01 08:17] VITALS: BP 202/72
[2016-11-01] MEDS: IMDUR PO SCH (08:37)
[2016-11-01] MEDS: TOPROL XL PO SCH (08:37)
[2016-11-01] MEDS: ASPIRIN PO SCH (08:37)
[2016-11-01] MEDS: NAMENDA PO SCH (08:37)
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
--- NOTE | 2016-11-20 18:51 | ED EKG INTERP ---
This chart was entered by Shelli Hill Scribe, acting as scribe for Kitty Limon MD. EKG Interpretation - EKG Time of EKG reading by physician:: 15:08 EKG Read and Signed by:: Kitty Limon EKG Interpretation (*Must complete 3 of following elements*): Abnormal Rate: 69 Rhythm: NSR Comments: Low voltage QRS; inferior infarct, age undetermined. Attestation - Physician/ KEEGAN Attestation Patient care was provided by Advanced Practice Provider:: No The physician spent face to face time with patient:: Yes Advanced Practice Provider documentation review:: Supervising physician onsite and consulted in the evaluation and care of this patient. The physician did have a face to face encounter with the patient. This chart was documented by the indicated scribe, (Shelli Hill Scribe) and accurately reflects the services I performed and decisions made by me, Kitty Limon MD, as attested by the provider's signature.
== END 2016-11-01 12:05 | disposition hospice, home (50) ==
LOC: SUPCPDRO → ED 13:51 → 4N 23:09
PROVIDERS: ADMIT Internal Medicine; ATTEND Internal Medicine